=== PATIENT | female | born 2005 | race Caucasian/White ===

== ENCOUNTER 2025-06-23 00:22 | Emergency (ER) | payer BC ==
[~2025-06-23] VITALS: Ht 170.2 cm; Wt 81.0 kg
[2025-06-23] MEDS ORDERED: CLEO300C2 PO (05:41)
[2025-06-23] MEDS ORDERED: AUGM500T34 PO (05:41)
[2025-06-23] MEDS: AUGMENTIN 875 MG TAB PO ONE (05:50)
[2025-06-23] MEDS: CLINDAMYCIN 150 MG CAPSULE PO ONE (05:50)
[2025-06-23 06:08] VITALS: BP 133/85; TEMP 97.3; O2SAT 98
== END 2025-06-23 06:00 | disposition home or self-care (01) ==
LOC: M ED 00:22
DX: N76.4 Abscess of vulva (principal); Z79.2 Long term (current) use of antibiotics; Z3A.19 19 weeks gestation of pregnancy